=== PATIENT | male | born 1980 | race Caucasian/White ===

== ENCOUNTER → 2024-11-01 | Day surgery (SDC) | payer OTHER ==
[~2024-11-01] MED LIST: ATORVASTATIN CA20 MG PO; ECHINACEA400 MG PO; FISH OIL 1,0001 EAC7 PO; METAMUCIL PO; TYLENOL325 MG PO
[2024-11-01] MEDS: LACTATED RINGER'S 1,000 ML ONE (13:16)
[2024-11-01 14:35] VITALS: BP 141/84; PULSE 88; RESP 16; O2SAT 98
== END | disposition home or self-care (01) ==
LOC: OR 12:17
PROVIDERS: ATTEND Internal Medicine Gastroenterology
DX: K21.9 Gastro-esophageal reflux disease without esophagitis (principal); D12.3 Benign neoplasm of transverse colon; K62.5 Hemorrhage of anus and rectum; K62.89 Other specified diseases of anus and rectum; K64.1 Second degree hemorrhoids; R03.0 Elevated blood-pressure reading, without diagnosis of hypertension; E78.5 Hyperlipidemia, unspecified; F41.9 Anxiety disorder, unspecified; F31.9 Bipolar disorder, unspecified; F17.210 Nicotine dependence, cigarettes, uncomplicated; Z79.1 Long term (current) use of non-steroidal anti-inflammatories (NSAID); Z79.899 Other long term (current) drug therapy
CPT/HCPCS: 45384; 93005; J7121; 45385